=== PATIENT | male | born 2005 | race Caucasian/White ===

== ENCOUNTER 2023-05-11 08:58 | Outpatient (CLI) | payer BC ==
[2023-05-11 10:53] LABS: #Basophils 0.1 10x3/uL (0.0-0.2); #Eosinphils 0.4 10x3/uL (0.0-0.5); #Monocytes 0.8 10x3/uL (0.0-1.1); #Neutrophils 4.8 10x3/uL (1.5-8.4); %Basophils 0.9 % (0.0-2.0); %Eosinophils 4.8 % (0.0-6.0); %Lymphocytes 27.7 % (18.0-47.0); %Monocytes 9.3 % (0.0-10.0); %Neutrophils 57.1 % (40.0-75.0); Hemoglobin 16.1 g/dL (13.5-17.5); Mean Corpuscular HGB CONC 34.1 g/dL (32.0-36.0); Mean Corpuscular Hemoglobin 30.5 pg (27.0-33.0); Mean Corpuscular Volume 89.4 fl (81.2-95.1); Mean Platelet Volume 9.4 fl (7.4-10.4); Platelet Count 279 10x3/uL (150-450); Red Blood Cell (RBC) Count 5.28 10x6/uL (4.32-5.72); White Blood Cell (WBC) Count 8.5 10x3/uL (3.5-10.5)
[2023-05-11 11:20] LABS: Anion Gap 13 mmol/L (10-20); BUN (Urea Nitrogen) 11 mg/dL (8.9-20.6); Calc. Creatinine Clearance 0 mL/min (70-130); Calcium 10.1 mg/dL (7.8-10.44); Carbon Dioxide 26 mmol/L (22-29); Chloride 106 mmol/L (98-107); Estimated GFR 97; Glucose 106 mg/dL (70-105); Sodium 141 mmol/L (136-145)
== END 2023-05-11 08:59 | disposition home or self-care (01) ==
LOC: LABBT 08:58
PROVIDERS: ATTEND Surgery
DX: Z01.812 Encounter for preprocedural laboratory examination (principal); L05.01 Pilonidal cyst with abscess
CPT/HCPCS: 80048; 85025